=== PATIENT | female | born 1980 | race Caucasian/White ===

== ENCOUNTER 2018-06-12 17:38 | Emergency (ER) | payer MEDICARE, OTHER ==
[~2018-06-12] VITALS: Ht 162.6 cm; Wt 81.6 kg
[2018-06-12 18:00] VITALS: BP 116/64
--- NOTE | 2018-06-12 18:39 | PHYS DOC ---
Adult General Chief Complaint Chief Complaint: FEMALE UROGENTIAL PROBLEMS HPI HPI Patient is a 38 year old female who presents to the ER with complaints of a retained tampon for the last 2 days. Pt denies any irregular vaginal discharge, dysuria, abdominal pain, or urinary frequency. She denies any pain at this time. Review of Systems Review of Systems Constitutional: Denies fever or chills [] : Denies dysuria or hematuria; reports retained tampon in vagina x 2 days [] Musculoskeletal: Denies back pain Neurologic: Denies headache, focal weakness or sensory changes [] All other systems were reviewed and found to be within normal limits, except as documented in this note. Allergies Allergies Allergies Coded Allergies Type Severity Reaction Last Updated Verified No Known Drug Allergies 06/12/18 No Physical Exam Physical Exam Constitutional: Well developed, well nourished, no acute distress, non-toxic appearance. [] HENT: Normocephalic, atraumatic, bilateral external ears normal, oropharynx moist, no oral exudates, nose normal. [] Eyes: PERRLA, conjunctiva normal, no discharge. [] Pelvic Exam: Telephone Coin Box Collector present Stephanie RN Abdomen: Nontender External Genitalia: Normal Skin Speculum: Normal vaginal mucosa, large amount of thick white vaginal discharge, normal cervical discharge, no visible foreign body Bimanual: No adnexal masses or tenderness, No CMT, no palpable foreign body Skin: Warm, dry, no erythema, no rash. [] Neurologic: Alert and oriented X 3, normal motor function, normal sensory function, no focal deficits noted. [] Psychologic: Affect normal, judgement normal, mood normal. [] Current Patient Data Lab Values Laboratory Tests Test 06/12/18 19:39 06/12/18 19:49 Urine Collection Type Unknown Urine Color Yellow Urine Clarity Cloudy Urine pH 5.5 Urine Specific [place] 1.025 Urine Protein Negative mg/dL (NEG-TRACE) Urine Glucose (UA) Negative mg/dL (NEG) Urine Ketones (Stick) Negative mg/dL (NEG) Urine Blood Moderate (NEG) Urine Nitrite Negative (NEG) Urine Bilirubin Negative (NEG) Urine Urobilinogen Dipstick 0.2 mg/dL (0.2 mg/dL) Urine Leukocyte Esterase Negative (NEG) Urine RBC Occ /HPF (0-2) Urine WBC 1-4 /HPF (0-4) Urine Squamous Epithelial Cells Many /LPF Urine Bacteria Many /HPF (0-FEW) POC Urine HCG, Qualitative Hcg negative (Negative) Microbiology 06/12/18 Wet Prep - Final, Complete EKG EKG [] Radiology/Procedures Radiology/Procedures [] Course & Med Decision Making Course & Med Decision Making Pertinent Labs and Imaging studies reviewed. (See chart for details) [] Dragon Disclaimer Dragon Disclaimer This electronic medical record was generated, in whole or in part, using a voice recognition dictation system. Departure Departure Impression: Primary Impression: UTI (urinary tract infection) Additional Impression: BV (bacterial vaginosis) Disposition: HOME, SELF-CARE Condition: STABLE Patient Instructions: Bacterial Vaginosis, [id number], Urinary Tract Infection, Bcoh-jf-Dhee Additional Instructions: Fill the prescriptions and use them as directed. Follow up with your primary care doctor next week. Return to the ER if symptoms worsen. Scripts Cephalexin (CEPHALEXIN) 500 Mg Capsule 1 CAP PO QID for 7 Days, #28 CAP 0 Refills Prov: JAMES RICKS APRN 06/12/18 Metronidazole (FLAGYL) 500 Mg Tablet 1 TAB PO BID for 7 Days, #14 TAB 0 Refills Prov: JAMES RICKS APRN 06/12/18 Problem Qualifiers Primary Impression: UTI (urinary tract infection) Urinary tract infection type: site unspecified Hematuria presence: with hematuria Qualified Codes: N39.0 - Urinary tract infection, site not specified ; R31.9 - Hematuria, unspecified JAMES RICKS APRN Jun 12, 2018 18:39
[2018-06-12 19:54] LABS: BILIRUBIN,URINE NEGATIVE (NEG); CLARITY,URINE CLOUDY; COLOR,URINE YELLOW; NITRITE,URINE NEGATIVE (NEG); PH,URINE 5.5; PROTEIN,URINE NEGATIVE (NEG-TRACE); UROBILINOGEN,URINE 0.2 mg/dL (0.2 mg/dL)
[2018-06-12 19:58] LABS: BACTERIA,URINE MANY /HPF (0-FEW); RBC,URINE OCC /HPF (0-2); SQUAMOUS EPITHELIAL CELL,UR MANY /LPF
--- NOTE | 2018-06-12 21:05 | RAD ---
Pelvic ultrasound Clinical Indication:PELVIC DISCOMFORT, POSS RETAINED TAMPON. . TRANSABDOMINAL SCAN Limited visualization of uterus and ovaries. TRANSVAGINAL SCAN Uterus: * Size (in centimeters): 6.9 longitudinal by 4.4 AP by 5 transverse. * Appearance: No evidence of mass * Endometrium: 4 mm endometrial stripe thickness. Uniform appearance. Right ovary: * Size: 3.1 cm long axis. * Blood flow: Intact * Appearance: Small follicles, 1 cm or less Left ovary: * Size: 3.3 cm long axis. * Blood flow: Intact * Appearance: Small follicles. Free fluid: None visualized IMPRESSION: Unremarkable pelvic ultrasound. No sonographic evidence of retained tampon. Electronically signed by: Al Garcia MD (06/12/2018 9:01 PM) [facility]
[2018-06-12] MEDS ORDERED: METR500T PO (21:36)
[2018-06-12] MEDS ORDERED: CEPH500C PO (21:36)
--- NOTE | 2018-06-13 07:56 | RAD ---
Examination: Single frontal view the pelvis HISTORY: History of retained tampon. COMPARISON: None available FINDINGS: Multiple calcifications identified in the pelvis likely pelvic phleboliths. Surgical clips identified in the pelvis. No evidence of radiopaque foreign body identified. Moderate degenerative changes left hip joint. Left hip hardware identified transfixing the left intertrochanteric fracture with surrounding heterotopic ossification. IMPRESSION: No evidence of radiopaque foreign body identified. Electronically signed by: Gagandeep Mendoza MD (06/13/2018 7:53 AM) [facility]
[2018-06-14 15:26] LABS: GC PROBE Negative (Negative)
== END 2018-06-12 21:51 | disposition home or self-care (01) ==
LOC: ER 17:38
DX: N76.0 Acute vaginitis (principal); B96.89 Other specified bacterial agents as the cause of diseases classified elsewhere; N39.0 Urinary tract infection, site not specified
CPT/HCPCS: 72170; 76830; 76856; 81001; 81025; 87491; 87591; 99285; Q0111; 87086

== ENCOUNTER 2018-06-23 11:28 | Emergency (ER) | payer MEDICARE, OTHER ==
[~2018-06-23] VITALS: Ht 154.9 cm; Wt 81.6 kg
[~2018-06-23 11:28] MED LIST: CEPH500C PO; METR500T PO
[2018-06-23 11:42] VITALS: BP 113/75
--- NOTE | 2018-06-23 12:34 | RAD ---
AP and Lateral Views of the Chest 06/23/2018 12:10 PM Indication: COUGH, SOA, SORE THROAT X 2 DAYS Comparison: None Findings: There is possible mild infiltrate in the medial right upper lobe. No pneumothorax or pleural effusion is seen. Heart size is within normal limits. Bony thorax is grossly intact. IMPRESSION: Possible mild infiltrate in the medial right upper lobe. Electronically signed by: Wilber Anne MD (06/23/2018 12:31 PM) [facility]
[2018-06-23] MEDS ORDERED: BENZ100C PO (12:41)
[2018-06-23] MEDS ORDERED: PROAIR HFA8.5 GM INH (12:41)
[2018-06-23] MEDS ORDERED: AZIT250T6 PO (12:41)
--- NOTE | 2018-06-23 12:41 | PHYS DOC ---
Past Medical History Past Medical History: Other Additional Past Medical Histor: Severe Traumatic Brain Injury Past Surgical History: Hip Replacement, Other Additional Past Surgical Histo: Brain Surgery Alcohol Use: None Drug Use: None Adult General Chief Complaint Chief Complaint: Congestion HPI HPI Patient is a 38 year old F who presents with productive cough and shortness of breath with audible wheezing for the last 2-3 days. Patient denies fever or chills. She denies nausea or vomiting. She is not a smoker Review of Systems Review of Systems Constitutional: Denies fever or chills [] HENT: Denies drainage or congestion. Respiratory: Reports cough with sputum production, reports wheezing and shortness of breath, worse with lying flat Cardiovascular: No additional information not addressed in HPI [] Integument: Denies rash or skin lesions [] All other systems were reviewed and found to be within normal limits, except as documented in this note. Current Medications Current Medications Current Medications Medications (Trade) Dose Ordered Sig/Inocente Start Time Stop Time Status Last Admin Dose Admin Albuterol/ Ipratropium (Duoneb) 3 ml 1X ONCE 06/23/18 12:45 06/23/18 12:46 DC 06/23/18 13:09 3 ML Allergies Allergies Allergies Coded Allergies Type Severity Reaction Last Updated Verified No Known Drug Allergies 06/12/18 No Physical Exam Physical Exam Constitutional: Well developed, well nourished, no acute distress, non-toxic appearance. [] HENT: Normocephalic, atraumatic, bilateral TMs pearly kim with retraction, no sinus tenderness present, posterior oropharynx without erythema or lesion Eyes: PERRLA, EOMI, conjunctiva normal, no discharge. [] Neck: Normal range of motion, no tenderness, supple, no stridor. [] Cardiovascular:Heart rate regular rhythm, no murmur [] Lungs & Thorax: Bilateral breath sounds diffuse wheezing and coarse lung sounds throughout Skin: Warm, dry, no erythema, no rash. [] Neurologic: Alert and oriented X 3, normal motor function, normal sensory function, no focal deficits noted. [] Psychologic: Affect normal, judgement normal, mood normal. [] Current Patient Data Vital Signs Vital Signs Date Time Temp Pulse Resp B/P (MAP) Pulse Ox O2 Delivery O2 Flow Rate FiO2 06/23/18 13:11 96 Room Air 06/23/18 11:42 97.3 93 18 113/75 (88) 97.3 EKG EKG [] Radiology/Procedures Radiology/Procedures PATIENT: JONG WALLIS ACCOUNT: [id number] : 1980 LOCATION: ER AGE: 38 SEX: F EXAM STATUS: REG ER ORD. PHYSICIAN: JOHNIE WATKINS APRN REASON: COUGH, SOB PROCEDURE: CHEST PA & LATERAL AP and Lateral Views of the Chest 06/23/2018 12:10 PM Indication: COUGH, SOA, SORE THROAT X 2 DAYS Comparison: None Findings: There is possible mild infiltrate in the medial right upper lobe. No pneumothorax or pleural effusion is seen. Heart size is within normal limits. Bony thorax is grossly intact. IMPRESSION: Possible mild infiltrate in the medial right upper lobe. Electronically signed by: Wilber Crump MD (06/23/2018 12:31 PM) [facility] DICTATED and SIGNED BY: WILBER CRUMP MD DATE: 06/23/18 1229 [] Course & Med Decision Making Course & Med Decision Making Pertinent Labs and Imaging studies reviewed. (See chart for details) Plan: Azithromycin Rx, albuterol MDI Rx, Tessalon Perles Rx, Phenergan with codeine Rx, follow-up with PCP, return precautions reviewed Dragon Disclaimer Dragon Disclaimer This electronic medical record was generated, in whole or in part, using a voice recognition dictation system. Departure Departure Impression: Primary Impression: Pneumonia Disposition: 01 HOME, SELF-CARE Condition: IMPROVED Referrals: NON,STAFF (PCP) Patient Instructions: Pneumonia, Adult Scripts Albuterol Sulfate (PROAIR HFA INHALER) 8.5 Gm Hfa.aer.ad 1 PUFF INH PRN Q6HRS PRN for SHORTNESS OF BREATH, #1 INHALER 0 Refills Prov: JOHNIE WATKINS APRN 06/23/18 Benzonatate (TESSALON PERLE) 100 Mg Capsule 1 CAP PO TID, #21 CAP Prov: JOHNIE WATKINS APRN 06/23/18 Azithromycin (AZITHROMYCIN TABLET) 250 Mg Tablet 1 PKG PO UD, #6 TAB Prov: JOHNIE WATKINS APRN 06/23/18 Problem Qualifiers Primary Impression: Pneumonia Pneumonia type: due to unspecified organism Laterality: right Lung location : middle lobe of lung Qualified Codes: J18.1 - Lobar pneumonia, unspecified organism JOHNIE WATKINS [employer]ICER Jun 23, 2018 12:41
[2018-06-23] MEDS ORDERED: IPRATRPIUM/ALBUTEROL 0.5/2.5MG 3 ML NEBU. NEB ONE (12:45)
== END 2018-06-23 13:39 | disposition home or self-care (01) ==
LOC: ER 11:28
DX: J18.1 Lobar pneumonia, unspecified organism (principal)
CPT/HCPCS: 71046; 94640; 99284; J7620

== ENCOUNTER 2018-10-05 10:21 | Emergency (ER) | payer MEDICARE, OTHER ==
[~2018-10-05] VITALS: Ht 162.6 cm; Wt 86.2 kg
[~2018-10-05 10:21] MED LIST changes: +ALBU2.5V8 INH; +AZIT250T6 PO; +BENZ100C PO
[2018-10-05] MEDS ORDERED: ONDANSETRON PF 4 MG/2 ML VIAL. IV ONE (10:45)
[2018-10-05] MEDS ORDERED: IV NORMAL SALINE 1000ML BAG 1,000 ML IV ONE (10:45)
[2018-10-05] MEDS ORDERED: FAMOTIDINE 20 MG/2 ML VIAL IVP ONE (10:45)
--- NOTE | 2018-10-05 10:47 | PHYS DOC ---
Past Medical History Past Medical History: Other Additional Past Medical Histor: Severe Traumatic Brain Injury Past Surgical History: Hip Replacement, Other Additional Past Surgical Histo: Brain Surgery Alcohol Use: None Drug Use: None Adult General Chief Complaint Chief Complaint: CHEST PAIN-NON CARDIAC NATURE HPI HPI Patient is a 38 year old female who presents with mid chest pain that radiates to her throat and she states is a sharp pain and rates 9 out of 10. The patient states this been going on for the last 2 days. Patient states she's had some nausea and vomiting but denies fever. Patient states she's been taking omeprazole. Review of Systems Review of Systems Constitutional: Denies fever or chills [] Eyes: Denies change in visual acuity, redness, or eye pain [] HENT: Denies nasal congestion or sore throat [] Respiratory: Denies cough or shortness of breath [] Cardiovascular: The chest pain radiates up her throat and is sharp GI: Denies abdominal pain, + nausea, + vomiting, denies bloody stools or diarrhea [] : Denies dysuria or hematuria [] Musculoskeletal: Denies back pain or joint pain [] Integument: Denies rash or skin lesions [] Neurologic: Denies headache, focal weakness or sensory changes [] All other systems were reviewed and found to be within normal limits, except as documented in this note. Current Medications Current Medications Current Medications Medications (Trade) Dose Ordered Sig/Inocente Start Time Stop Time Status Last Admin Dose Admin Famotidine (Pepcid Vial) 20 mg 1X ONCE 10/05/18 10:45 10/05/18 10:46 DC 10/05/18 10:57 20 MG Fentanyl Citrate (Fentanyl 2ml Vial) 50 mcg 1X ONCE 10/05/18 12:45 10/05/18 12:46 DC 10/05/18 12:45 50 MCG Multi-Ingredient Mouthwash/Gargle (Gi Cocktail) 20 ml 1X ONCE 10/05/18 13:00 10/05/18 13:01 DC 10/05/18 12:59 20 ML Ondansetron HCl (Zofran) 4 mg 1X ONCE 10/05/18 10:45 10/05/18 10:46 DC 10/05/18 10:56 4 MG Sodium Chloride 1,000 ml @ 1,000 mls/hr 1X ONCE 10/05/18 10:45 10/05/18 11:44 DC 10/05/18 10:56 1,000 MLS/HR Allergies Allergies Allergies Coded Allergies Type Severity Reaction Last Updated Verified No Known Drug Allergies 06/12/18 No Physical Exam Physical Exam Constitutional: Well developed, well nourished, no acute distress, non-toxic appearance. [] HENT: Normocephalic, atraumatic, bilateral external ears normal, oropharynx moist, no oral exudates, nose normal. [] Eyes: PERRLA, EOMI, conjunctiva normal, no discharge. [] Neck: Normal range of motion, no tenderness, supple, no stridor. [] Cardiovascular:Heart rate regular rhythm, no murmur [] Lungs & Thorax: Bilateral breath sounds clear to auscultation [] Abdomen: Bowel sounds normal, soft, no tenderness, no masses, no pulsatile masses. [] Skin: Warm, dry, no erythema, no rash. [] Back: No tenderness, no CVA tenderness. [] Extremities: No tenderness, no cyanosis, no clubbing, ROM intact, no edema. [] Neurologic: Alert and oriented X 3, normal motor function, normal sensory function, no focal deficits noted. [] Psychologic: Affect normal, judgement normal, mood normal. [] Current Patient Data Vital Signs Vital Signs Date Time Temp Pulse Resp B/P (MAP) Pulse Ox O2 Delivery O2 Flow Rate FiO2 10/05/18 13:00 92 121/58 (79) 96 Room Air 10/05/18 10:21 97.4 16 97.4 Lab Values Laboratory Tests Test 10/05/18 11:05 10/05/18 11:30 White Blood Count 9.5 x10^3/uL (4.0-11.0) Red Blood Count 4.05 x10^6/uL (3.50-5.40) Hemoglobin 12.3 g/dL (12.0-15.5) Hematocrit 36.6 % (36.0-47.0) Mean Corpuscular Volume 90 fL (79-100) Mean Corpuscular Hemoglobin 30 pg (25-35) Mean Corpuscular Hemoglobin Concent 34 g/dL (31-37) Red Cell Distribution Width 14.5 % (11.5-14.5) Platelet Count 274 x10^3/uL (140-400) Neutrophils (%) (Auto) 76 % (31-73) H Lymphocytes (%) (Auto) 17 % (24-48) L Monocytes (%) (Auto) 5 % (0-9) Eosinophils (%) (Auto) 2 % (0-3) Basophils (%) (Auto) 1 % (0-3) Neutrophils # (Auto) 7.3 x10^3uL (1.8-7.7) Lymphocytes # (Auto) 1.6 x10^3/uL (1.0-4.8) Monocytes # (Auto) 0.5 x10^3/uL (0.0-1.1) Eosinophils # (Auto) 0.1 x10^3/uL (0.0-0.7) Basophils # (Auto) 0.0 x10^3/uL (0.0-0.2) Sodium Level 141 mmol/L (136-145) Potassium Level 3.5 mmol/L (3.5-5.1) Chloride Level 104 mmol/L (98-107) Carbon Dioxide Level 25 mmol/L (21-32) Anion Gap 12 (6-14) Blood Urea Nitrogen 13 mg/dL (7-20) Creatinine 1.1 mg/dL (0.6-1.0) H Estimated GFR (Cockcroft-Gault) 55.3 BUN/Creatinine Ratio 12 (6-20) Glucose Level 164 mg/dL (70-99) H Calcium Level 8.8 mg/dL (8.5-10.1) Total Bilirubin 0.3 mg/dL (0.2-1.0) Aspartate Amino Transferase (AST) 13 U/L (15-37) L Alanine Aminotransferase (ALT) 21 U/L (14-59) Alkaline Phosphatase 96 U/L (46-116) Troponin I Quantitative < 0.017 ng/mL (0.000-0.055) Total Protein 6.7 g/dL (6.4-8.2) Albumin 3.4 g/dL (3.4-5.0) Albumin/Globulin Ratio 1.0 (1.0-1.7) Urine Collection Type Void Urine Color Yellow Urine Clarity Cloudy Urine pH 5.5 Urine Specific [place] 1.020 Urine Protein Negative mg/dL (NEG-TRACE) Urine Glucose (UA) Negative mg/dL (NEG) Urine Ketones (Stick) Negative mg/dL (NEG) Urine Blood Negative (NEG) Urine Nitrite Negative (NEG) Urine Bilirubin Negative (NEG) Urine Urobilinogen Dipstick 0.2 mg/dL (0.2 mg/dL) Urine Leukocyte Esterase Trace (NEG) Urine RBC Rare /HPF (0-2) Urine WBC 1-4 /HPF (0-4) Urine Squamous Epithelial Cells Mod /LPF Urine Bacteria Few /HPF (0-FEW) Urine Mucus Slight /LPF Urine Test Negative (NEG) Laboratory Tests 10/05/18 11:05 Laboratory Tests 10/05/18 11:05 EKG EKG []Sinus rhythm and no STEMI Interpretation Time: [address] Castillo Radiology/Procedures Radiology/Procedures Chest xray Impressions: [facility] [address] [place], [place] [id number] IMAGING REPORT Signed PATIENT: JONG WALLIS ACCOUNT: [id number] : 1980 LOCATION: ER AGE: 38 SEX: F EXAM STATUS: REG ER ORD. PHYSICIAN: BANDAR SANCHEZ APRN REASON: chest pain,PREG TEST PROCEDURE: CHEST PA & LATERAL PROCEDURE: CHEST PA LATERAL CLINICAL INDICATION: CHEST PAIN COMPARISON: 06/23/2018 FINDINGS: No pneumothorax identified. Cardiac and mediastinal contours unremarkable. No pulmonary consolidation or acute airspace disease. No acute osseous abnormalities identified. IMPRESSION: No pulmonary consolidation or acute airspace disease. Electronically signed by: Juan Dia DO (10/05/2018 12:41 PM) [id number] DICTATED and SIGNED BY: JUAN DIA DO DATE: 10/05/18 1241 Course & Med Decision Making Course & Med Decision Making Patient is a 38 year old female who presents with mid chest pain that radiates to her throat and she states is a sharp pain and rates 9 out of 10. The patient states this been going on for the last 2 days. Patient states she's had some nausea and vomiting but denies fever. Patient states she's been taking omeprazole. Alert and oriented. Patient does have history for TBI. Patient has no abdominal tenderness. Abdomen is soft no masses felt. Lungs are clear to auscultation all lobes. PERRLA. Chest pain not re-produced with palpation. Afebrile. Skin pink and dry. Mucus membranes are moist. Denies dysuria, diarrhea , shortness of breath. Patient has no peripheral edema. Vital signs are within normal limits. Blood work is unremarkable. Chest x-ray shows no acute findings. Patient continues to complain about epigastric pain that radiates up into her throat. Patient is given a GI cocktail and fentanyl. The patient me discharged with nonspecific chest pain and nonspecific epigastric pain likely GERD related. Dragon Disclaimer Dragon Disclaimer This electronic medical record was generated, in whole or in part, using a voice recognition dictation system. Departure Departure Impression: Primary Impression: Epigastric abdominal pain Additional Impression: Nonspecific abdominal pain Disposition: HOME, SELF-CARE Condition: STABLE Referrals: NON,STAFF (PCP) Patient Instructions: Chest Pain (Nonspecific), Gastroesophageal Reflux Disease , Adult Additional Instructions: Continue taking Pepcid one in the morning and 1 in evening. Follow-up through primary care in the next couple of days. Return for worsening of symptoms, shortness of air, fever. Attending Signature Attending Signature I have reviewed the PA/FULLER BRUSH WORKER's note and plan of care. I was available for consultation as needed during the patient's visit in the emergency department. I agree with the clinical impression, plan, and disposition. Problem Qualifiers BANDAR SANCHEZ APRN Oct 05, 2018 10:47 RADHA CASTILLO DO Oct 06, 2018 09:18
--- NOTE | 2018-10-05 10:54 | EKG ---
[facility] [address] [place] [address] Test Date: 2018-10-05 Test Time: 10:31:32 Pat Name: JONG WALLIS Department: Room: Gender: F Strategic Sourcing Manager: : 1980 Requested By: BANDAR SANCHEZ Order Number: [id number] Reading MD: Measurements Intervals [place] Rate: 74 P: 139 MS: 138 QRS: 166 QRSD: 78 T: 165 QT: 394 QTc: 443 Interpretive Statements SINUS RHYTHM ABNORMAL RIGHT AXIS DEVIATION QRS(T) CONTOUR ABNORMALITY CONSISTENT WITH HIGH LATERAL INFARCT AGE UNDETERMINED T ABNORMALITY IN INFERIOR LEADS ABNORMAL ECG RI6.01 No previous ECG available for comparison
[2018-10-05 11:18] LABS: BASO % 1 % (0-3); EOS # 0.1 x10^3/uL (0.0-0.7); EOS % 2 % (0-3); HEMATOCRIT 36.6 % (36.0-47.0); HEMOGLOBIN 12.3 g/dL (12.0-15.5); LYMPH # 1.6 x10^3/uL (1.0-4.8); LYMPH % 17 % (24-48); MEAN CORPUSCULAR HEMOGLOBIN 30 pg (25-35); MEAN CORPUSCULAR HGB CONC 34 g/dL (31-37); MEAN CORPUSCULAR VOLUME 90 fL (79-100); MONO # 0.5 x10^3/uL (0.0-1.1); MONO % 5 % (0-9); NEUT # 7.3 x10^3uL (1.8-7.7); NEUT % 76 % (31-73); PLATELET COUNT 274 x10^3/uL (140-400); RED BLOOD COUNT 4.05 x10^6/uL (3.50-5.40); RED CELL DISTRIBUTION WIDTH 14.5 % (11.5-14.5); WHITE BLOOD COUNT 9.5 x10^3/uL (4.0-11.0)
[2018-10-05 11:32] LABS: CALCIUM 8.8 mg/dL (8.5-10.1); CREATININE 1.1 mg/dL (0.6-1.0); GFR 55.3; POTASSIUM 3.5 mmol/L (3.5-5.1)
[2018-10-05 11:39] LABS: ALBUMIN 3.4 g/dL (3.4-5.0); TOTAL BILIRUBIN 0.3 mg/dL (0.2-1.0); TOTAL PROTEIN 6.7 g/dL (6.4-8.2)
[2018-10-05 11:46] LABS: BILIRUBIN,URINE NEGATIVE (NEG); CLARITY,URINE CLOUDY; COLOR,URINE YELLOW; NITRITE,URINE NEGATIVE (NEG); PH,URINE 5.5; PROTEIN,URINE NEGATIVE (NEG-TRACE); UROBILINOGEN,URINE 0.2 mg/dL (0.2 mg/dL)
[2018-10-05 11:48] LABS: BACTERIA,URINE FEW /HPF (0-FEW); RBC,URINE RARE /HPF (0-2); SQUAMOUS EPITHELIAL CELL,UR MOD /LPF
[2018-10-05 11:55] LABS: U PREG PATIENT NEGATIVE (NEG)
[2018-10-05] MEDS ORDERED: fentaNYL PF VIAL 100 MCG/2 ML VIAL IV ONE (12:45)
--- NOTE | 2018-10-05 12:46 | RAD ---
PROCEDURE: CHEST PA LATERAL CLINICAL INDICATION: CHEST PAIN COMPARISON: 06/23/2018 FINDINGS: No pneumothorax identified. Cardiac and mediastinal contours unremarkable. No pulmonary consolidation or acute airspace disease. No acute osseous abnormalities identified. IMPRESSION: No pulmonary consolidation or acute airspace disease. Electronically signed by: Juan Dia DO (10/05/2018 12:41 PM) [id number]
[2018-10-05 13:00] VITALS: BP 121/58
[2018-10-05] MEDS ORDERED: LIDO:MAALOX 1:1 20 ML SINGLE DOSE. SWSW ONE (13:00)
== END 2018-10-05 13:47 | disposition home or self-care (01) ==
LOC: ER 10:21
DX: R10.13 Epigastric pain (principal); R11.2 Nausea with vomiting, unspecified; R07.0 Pain in throat; Z87.820 Personal history of traumatic brain injury; Z96.649 Presence of unspecified artificial hip joint
CPT/HCPCS: 36415; 71046; 80053; 81001; 81025; 84484; 85025; 87086; 93005; 96361; 96374; 96375; 99284; J2405; J3010; J3490; J7030

== ENCOUNTER 2018-10-17 15:05 | Emergency (ER) | payer MEDICARE, OTHER ==
[~2018-10-17] VITALS: Ht 162.6 cm; Wt 72.6 kg
--- NOTE | 2018-10-17 15:43 | PHYS DOC ---
Past Medical History Past Medical History: GERD, Other Additional Past Medical Histor: Severe Traumatic Brain Injury (DANIELLE CONTEHRICHARD Muller APRN) Past Surgical History: Hip Replacement, Other Additional Past Surgical Histo: Brain Surgery (GIANCARLO CONTEHTIFFANIE Muller APRN) Alcohol Use: None Drug Use: None (ZHENGRIKYGIANCARLOJUWANTIFFANIE Muller APRN) Adult General Chief Complaint Chief Complaint: MECHANICAL FALL HPI HPI Patient is a 38 year old female who presents with pain and swelling to her left orbit and right wrist. The patient was at home when her walker broke causing her to fall to the floor from standing height. The patient is using a walker due to a recent hip surgery. She did not have anything to break her fall and landed directly onto a hardwood floor. They presented directly to the emergency department. (JUWAN CONTEH APRN) Review of Systems Review of Systems Constitutional: Denies fever or chills [] Eyes: Denies change in visual acuity, redness, or eye pain [] HENT: Denies nasal congestion or sore throat [] Respiratory: Denies cough or shortness of breath [] Cardiovascular: No additional information not addressed in HPI [] GI: Denies abdominal pain, nausea, vomiting, bloody stools or diarrhea [] : Denies dysuria or hematuria [] Musculoskeletal: See history of present illness Integument: Denies rash or skin lesions [] Neurologic: Denies headache, focal weakness or sensory changes [] Endocrine: Denies polyuria or polydipsia [] All other systems were reviewed and found to be within normal limits, except as documented in this note. (JUWAN CONTEH APRN) Current Medications Current Medications Current Medications Medications (Trade) Dose Ordered Sig/Inocente Start Time Stop Time Status Last Admin Dose Admin Acetaminophen/ Hydrocodone Bitart (Lortab 5/325) 1 tab 1X ONCE 10/17/18 15:45 10/17/18 15:46 DC 10/17/18 16:17 1 TAB (RADHA CASTILLO DO) Allergies Allergies Allergies Coded Allergies Type Severity Reaction Last Updated Verified No Known Drug Allergies 06/12/18 No (RADHA CASTILLO DO) Physical Exam Physical Exam Constitutional: Well developed, well nourished, no acute distress, non-toxic appearance. [] HENT: Normocephalic, hematoma noted to right orbit with moderate edema, bilateral external ears normal, oropharynx moist, no oral exudates, nose normal. [] Eyes: PERRLA, EOMI, conjunctiva normal, no discharge. [] Neck: Normal range of motion, no tenderness, supple, no stridor. [] Cardiovascular:Heart rate regular rhythm, no murmur [] Lungs & Thorax: Bilateral breath sounds clear to auscultation [] Abdomen: Bowel sounds normal, soft, no tenderness, no masses, no pulsatile masses. [] Skin: Warm, dry, no erythema, no rash. [] Back: No tenderness, no CVA tenderness. [] Extremities: tenderness to right wrist with mild edema noted, no cyanosis, no clubbing, ROM decreased due to pain Neurologic: Alert and oriented X 3, normal motor function, normal sensory function, no focal deficits noted. [] Psychologic: Affect normal, judgement normal, mood normal. [] (JUWAN CONTEH APRN) Current Patient Data Vital Signs Vital Signs Date Time Temp Pulse Resp B/P (MAP) Pulse Ox O2 Delivery O2 Flow Rate FiO2 10/17/18 16:17 16 99 Room Air 10/17/18 15:33 97.7 75 112/65 (81) 97.7 (RADHA CASTILLO DO) Lab Values Laboratory Tests Test 10/17/18 15:46 POC Urine HCG, Qualitative Hcg negative (Negative) (RADHA CASTILLO DO) Lab Values Laboratory Tests Test 10/17/18 15:46 POC Urine HCG, Qualitative Hcg negative (Negative) (JUWAN CONTEH APRN) EKG EKG [] (JUWAN CONTEH APRN) Radiology/Procedures Radiology/Procedures [] PATIENT: JONG WALLIS ACCOUNT: [id number] : 1980 LOCATION: ER AGE: 38 SEX: F EXAM STATUS: REG ER ORD. PHYSICIAN: JUWAN CONTEH APRN REASON: fell after walker broke from standing height onto face and wrist PROCEDURE: WRIST 3V RIGHT Right wrist radiograph every 12/01/2018 INDICATION: Fall from standing position. COMPARISON: None available TECHNIQUE: 3 views of the right wrist are provided. FINDINGS: Volar plate and screw fixation of the distal radius is noted. There is no lucency surrounding the hardware. Scaphoid appears intact. There is a remote ulnar styloid process fracture which appears well corticated. Scapholunate interval is intact. There is no perilunate dislocation. IMPRESSION: ORIF changes of the distal radius are noted. No acute fracture is identified. Electronically signed by: Sheron Urbano MD (10/17/2018 3:57 PM) [facility] DICTATED and SIGNED BY: SHERON URBANO MD DATE: 10/17/18 1556 Signed PATIENT: JONG WALLIS ACCOUNT: [id number] : 1980 LOCATION: ER AGE: 38 SEX: F EXAM STATUS: REG ER ORD. PHYSICIAN: JUWAN CONTEH APRN REASON: fell on left orbit after wheel broke on walker PROCEDURE: CT HEAD AND MAXILLOFACIAL WO CT Head W/O Contrast: History: fell on left orbit after wheel broke on walker Comparison: none Axial images were obtained without contrast. There is a large prior left sided craniotomy and there is a large area of encephalomalacia in the left cerebral hemisphere. There is dural changes over the left cerebral hemisphere as well which is felt to be chronic. There is encephalomalacia of the temporal lobes bilaterally and there is mild diffuse atrophy. There is no mass effect, extraaxial fluid collections or hydrocephalus. There is no gross bleed. There is no focal loss of kim-white matter distinction to suggest acute ischemia, i.e. stroke. Impression: 1. Chronic changes including prior left craniotomy and large area of encephalomalacia throughout the left cerebral hemisphere. 2. No acute findings. PQRS Compliance Statement: One or more of the following individualized dose reduction techniques were utilized for this examination: 1. Automated exposure control 2. Adjustment of the mA and/or kV according to patient size 3. Use of iterative reconstruction technique Electronically signed by: Tyesha Ca III, MD (10/17/2018 4:20 PM) [facility] DICTATED and SIGNED BY: TYESHA CA III, MD DATE: 10/17/18 1614 (JUWAN CONTEH APRN) Course & Med Decision Making Course & Med Decision Making Pertinent Labs and Imaging studies reviewed. (See chart for details) []There were no acute results to CT or wrist. (JUWAN CONTEH APRN) Dragon Disclaimer Dragon Disclaimer This electronic medical record was generated, in whole or in part, using a voice recognition dictation system. (JUWAN CONTEH APRN) Departure Departure Impression: Primary Impression: Hematoma Disposition: HOME, SELF-CARE Condition: STABLE Referrals: NON,STAFF (PCP) Patient Instructions: Hematoma Additional Instructions: You may take ibuprofen or Tylenol for pain. Follow-up with your primary care provider for recheck in 3 days or return to the emergency department if worsening. Attending Signature Attending Signature I have reviewed the PA/SOLAR PV INSTALLER's note and plan of care. I was available for consultation as needed during the patient's visit in the emergency department. I agree with the clinical impression, plan, and disposition. (RADHA CASTILLO DO) JUWAN CNOTEH APRN Oct 17, 2018 15:43 RADHA CASTILLO DO Oct 19, 2018 05:02
[2018-10-17] MEDS ORDERED: HYDROcodone/APAP 5/325MG 1 TAB TABLET PO ONE (15:45)
--- NOTE | 2018-10-17 16:02 | RAD ---
Right wrist radiograph every 12/01/2018 INDICATION: Fall from standing position. COMPARISON: None available TECHNIQUE: 3 views of the right wrist are provided. FINDINGS: Volar plate and screw fixation of the distal radius is noted. There is no lucency surrounding the hardware. Scaphoid appears intact. There is a remote ulnar styloid process fracture which appears well corticated. Scapholunate interval is intact. There is no perilunate dislocation. IMPRESSION: ORIF changes of the distal radius are noted. No acute fracture is identified. Electronically signed by: Sindhu Dunn MD (10/17/2018 3:57 PM) [facility]
--- NOTE | 2018-10-17 16:24 | RAD ---
CT Head W/O Contrast: History: fell on left orbit after wheel broke on walker Comparison: none Axial images were obtained without contrast. There is a large prior left sided craniotomy and there is a large area of encephalomalacia in the left cerebral hemisphere. There is dural changes over the left cerebral hemisphere as well which is felt to be chronic. There is encephalomalacia of the temporal lobes bilaterally and there is mild diffuse atrophy. There is no mass effect, extraaxial fluid collections or hydrocephalus. There is no gross bleed. There is no focal loss of kim-white matter distinction to suggest acute ischemia, i.e. stroke. Impression: 1. Chronic changes including prior left craniotomy and large area of encephalomalacia throughout the left cerebral hemisphere. 2. No acute findings. PQRS Compliance Statement: One or more of the following individualized dose reduction techniques were utilized for this examination: 1. Automated exposure control 2. Adjustment of the mA and/or kV according to patient size 3. Use of iterative reconstruction technique Electronically signed by: Mayito Cintron III, MD (10/17/2018 4:20 PM) [facility]
== END 2018-10-17 16:40 | disposition home or self-care (01) ==
LOC: ER 15:05
DX: S05.12XA Contusion of eyeball and orbital tissues, left eye, initial encounter (principal); R60.0 Localized edema; M25.531 Pain in right wrist; K21.9 Gastro-esophageal reflux disease without esophagitis; Z96.649 Presence of unspecified artificial hip joint; W05.0XXA Fall from non-moving wheelchair, initial encounter; Y93.89 Activity, other specified; Y92.009 Unspecified place in unspecified non-institutional (private) residence as the place of occurrence of the external cause; Y99.8 Other external cause status
CPT/HCPCS: 70450; 70486; 73110; 81025; 99284

== ENCOUNTER 2018-12-30 10:25 | Emergency (ER) | payer MEDICARE, OTHER ==
[~2018-12-30] VITALS: Ht 165.1 cm; Wt 81.6 kg
[2018-12-30 11:03] VITALS: BP 119/62
--- NOTE | 2018-12-30 12:01 | RAD ---
3 view study of the right wrist Clinical indications: Right wrist pain after a fall. History of surgery 2013. COMPARISON: October 17, 2018. FINDINGS: Again seen is old healed fracture of the distal right radius. Again seen is surgical fixation hardware which is unchanged in position. No acute-appearing fracture is evident. No lytic process is evident. Alignment is unchanged. Old nonunited ulnar styloid process process fracture or ossification center is seen. IMPRESSION: Stable radiographic study of the right wrist. No acute fracture. Electronically signed by: Kd Shabazz MD (12/30/2018 11:58 AM) [facility]
--- NOTE | 2018-12-30 12:21 | PHYS DOC ---
Past Medical History Past Medical History: GERD, Other Additional Past Medical Histor: Severe Traumatic Brain Injury Past Surgical History: Hip Replacement, Other Additional Past Surgical Histo: Brain Surgery , right wrist fx with plate and screw Alcohol Use: None Drug Use: None Adult General Chief Complaint Chief Complaint: WRIST PAIN HPI HPI Patient is a 38 year old female with history of traumatic brain injury presenting today to the ED with the mother complaining of 6 out of 10 throbbing right wrist pain intermittently since yesterday after she fell down. Patient ambulates with a walker. Mother stated patient tripped and fell. Mother denies patient hitting her head on the ground. Mother denies patient having any loss of consciousness. Review of Systems Review of Systems Constitutional: Denies fever or chills [] Musculoskeletal: Reports right wrist pain Integument: Denies rash or skin lesions [] Neurologic: Denies headache, focal weakness or sensory changes [] All other systems were reviewed and found to be within normal limits, except as documented in this note. Allergies Allergies Allergies Coded Allergies Type Severity Reaction Last Updated Verified No Known Drug Allergies 06/12/18 No Physical Exam Physical Exam Constitutional: Well developed, well nourished, no acute distress, non-toxic appearance. [] Skin: Warm, dry, no erythema, no rash. [] Back: No tenderness, no CVA tenderness. [] Extremities: Right wrist with no obvious deformity, there is an old healed surgical incision noted on the ventral aspect of the wrist. No redness to the area. No scaphoid tenderness. Full range of motion to the right wrist and fingers. Adequate radial, medial, ulnar sensation to the right hand. +2 right radial pulse. Cap refill less than 2 seconds the right fingers. Neurologic: Alert and oriented X 3, normal motor function, normal sensory function, no focal deficits noted. [] Psychologic: Affect normal, judgement normal, mood normal. [] Current Patient Data Vital Signs Vital Signs Date Time Temp Pulse Resp B/P (MAP) Pulse Ox O2 Delivery O2 Flow Rate FiO2 12/30/18 11:03 98.3 73 15 119/62 (81) 96 Room Air 98.3 EKG EKG [] Radiology/Procedures Radiology/Procedures []PROCEDURE: WRIST 3V RIGHT 3 view study of the right wrist Clinical indications: Right wrist pain after a fall. History of surgery 2012. COMPARISON: October 17, 2018. FINDINGS: Again seen is old healed fracture of the distal right radius. Again seen is surgical fixation hardware which is unchanged in position. No acute-appearing fracture is evident. No lytic process is evident. Alignment is unchanged. Old nonunited ulnar styloid process process fracture or ossification center is seen. IMPRESSION: Stable radiographic study of the right wrist. No acute fracture. Electronically signed by: Ramiro Shabazz MD (12/30/2018 11:58 AM) [facility] DICTATED and SIGNED BY: RAMIRO SHABAZZ MD DATE: 12/30/18 1158 Course & Med Decision Making Course & Med Decision Making Pertinent Labs and Imaging studies reviewed. (See chart for details) This is a 38-year-old female patient presenting to the ED today with right wrist pain status post falling yesterday. Right wrist x-rays interpreted by radiologist are negative for any acute findings. Filippo bandage applied to the right wrist. Ice elevation encouraged. Tylenol or Motrin for pain. Follow-up with orthopedic doctor in 1-2 weeks as needed. Dragon Disclaimer Dragon Disclaimer This electronic medical record was generated, in whole or in part, using a voice recognition dictation system. Departure Departure Impression: Primary Impression: Fall from standing Additional Impression: Right wrist sprain Disposition: 01 HOME, SELF-CARE Condition: STABLE Referrals: UNKNOWN PCP NAME (PCP) NORMAN RIVERS II, MD follow up in 1-2 weeks as needed Patient Instructions: Wrist Sprain with [facility] Additional Instructions: You were evaluated in the emergency room for right wrist pain, your right wrist x-rays are negative for any acute findings. Try to ice and elevate the extremity. You can take Tylenol/Motrin for pain. Follow-up with the provided orthopedic doctor or your own orthopedic doctor in 1-2 weeks. Problem Qualifiers Primary Impression: Fall from standing Encounter type: initial encounter Qualified Codes: W19.XXXA - Unspecified fall, initial encounter Additional Impression: Right wrist sprain Encounter type: initial encounter Qualified Codes: S63.501A - Unspecified sprain of right wrist, initial encounter MARKO GUTIÉRREZ APRN Dec 30, 2018 12:21
== END 2018-12-30 12:34 | disposition home or self-care (01) ==
LOC: ER 10:25
DX: S63.501A Unspecified sprain of right wrist, initial encounter (principal); K21.9 Gastro-esophageal reflux disease without esophagitis; Z87.820 Personal history of traumatic brain injury; Z98.890 Other specified postprocedural states; W01.0XXA Fall on same level from slipping, tripping and stumbling without subsequent striking against object, initial encounter; Y93.89 Activity, other specified; Y92.89 Other specified places as the place of occurrence of the external cause; Y99.8 Other external cause status
CPT/HCPCS: 73110; 99284

== ENCOUNTER 2019-04-17 21:03 | Emergency (ER) | payer MEDICARE, OTHER ==
[~2019-04-17] VITALS: Ht 165.1 cm; Wt 81.6 kg
[2019-04-17 21:30] VITALS: BP 131/61
--- NOTE | 2019-04-17 23:04 | RAD ---
Exam performed: CT scan of the head and cervical spine without contrast. Date of Service: 04/17/2019 Comparison: CT head and maxillofacial from 10/17/2018 Clinical History: Trauma, patient fell today, neck pain, bruising under the chin, history of traumatic brain injury Technique: Helical acquisitions are obtained from the foramen magnum to the vertex without intravenous administration of contrast. In addition helical acquisitions are obtained through the cervical spine and maxillofacial structures. Sagittal and coronal reformatted images are obtained and reviewed. CT scan head findings: Postoperative changes of left temporoparietal craniotomy with underlying encephalomalacia. There is an area of encephalomalacia in the right temporal lobe. Prominence of cortical sulci and ventricular system is noted consistent with atrophy. There is no extra axial fluid collection, intraparenchymal hemorrhage or mass lesion. Normal kim-white differentiation is maintained. There is no extra axial fluid collection, intraparenchymal hemorrhage or mass lesion. The visualized orbits, paranasal sinuses and the mastoid air cells are clear. The calvarium is intact. Impression: 1. No acute intracranial process detected. 2. Postoperative changes of left temporal parietal craniotomy with underlying chondromalacia. Mild atrophy is seen. End Impression. CT cervical spine findings: Normal sagittal alignment is preserved. The vertebral body heights and intravertebral disc spaces are maintained. There is no kasia or retrolisthesis. No prevertebral soft tissue swelling is identified. There are no fractures. No definite lymphadenopathy or masses are seen within the neck. The visualized thyroid and salivary glands appears preserved. Impression: 1. No acute abnormality seen in the CT scan cervical spine. End impression Findings: There is normal aeration of both frontal, ethmoid, maxillary and sphenoid sinuses. No air-fluid level, mucoperiosteal thickening or mucus retention cyst is identified. The bony orbital margins and the intraocular contents are bilaterally symmetric and unremarkable. Both ostiomeatal complexes are preserved. Nasal bones and zygomatic arches are preserved.No abnormal fluid collections or hematoma formation seen. The visualized portion of the brain is normal. Impression: 1. No acute abnormality seen. PQRS Compliance Statement: One or more of the following individualized dose reduction techniques were utilized for this examination: 1. Automated exposure control 2. Adjustment of the mA and/or kV according to patient size 3. Use of iterative reconstruction technique Electronically signed by: Kelsey Membreno MD (04/17/2019 11:01 PM) [facility]
[2019-04-17] MEDS ORDERED: IBUPROFEN 200 MG TABLET. PO ONE (23:30)
--- NOTE | 2019-04-18 02:06 | PHYS DOC ---
Past Medical History Past Medical History: Bipolar, GERD, Other Additional Past Medical Histor: Severe Traumatic Brain Injury Past Surgical History: Hip Replacement, Other Additional Past Surgical Histo: Brain Surgery , right wrist fx with plate and screw Alcohol Use: None Drug Use: None Adult General Chief Complaint Chief Complaint: MECHANICAL FALL HPI HPI Patient is a 38 year old female brought in by [facility] is a mechanical fall at her home sounds like a fall from standing she walks with a walker since that she probably tripped over something hit her chin and has neck pain and headache she has a history of a craniotomy for a previous brain injury she also has left knee pain. All other ROS neg unless otherwise noted in HPI Review of Systems Review of Systems SEE ABOVE Current Medications Current Medications Current Medications Medications (Trade) Dose Ordered Sig/Inocente Start Time Stop Time Status Last Admin Dose Admin Ibuprofen (Motrin) 600 mg 1X ONCE 04/17/19 23:30 04/17/19 23:30 DC 04/17/19 23:23 600 MG Allergies Allergies Allergies Coded Allergies Type Severity Reaction Last Updated Verified No Known Drug Allergies 06/12/18 No Physical Exam Physical Exam see above Constitutional: Well developed, well nourished, no acute distress, non-toxic appearance. [] HENT: Normocephalic, atraumatic, bilateral external ears normal, oropharynx moist. ANTERIOR CHIN THERE IS CONTUSION NOTED UNDERNEATH CHIN TRACHEA MIDLINE NO CREPITUS NO RESPIRATORY DISTRESS. Eyes: PERRLA, EOMI, conjunctiva normal, no discharge. [] Neck: DIFFUSE MIDLINE AND PARASPINOUS TTP NOTED. Cardiovascular:Heart rate regular rhythm, no murmur [] Lungs & Thorax: Bilateral breath sounds clear to auscultation [] Abdomen: Bowel sounds normal, soft, no tenderness, no masses, no pulsatile masses. [] Skin: Warm, dry, no erythema, no rash. [] Back: No tenderness, no CVA tenderness. [] Extremities: MILD TTP NOTED LEFT KNEE FAINT CONTUSION NO SIG DEFORMITY DISTAL SENSATION INTACT PULSE INTACT Neurologic: Alert and oriented X 3, normal motor function, normal sensory function, no focal deficits noted. [] Psychologic: Affect normal, judgement normal, mood normal. [] Current Patient Data Vital Signs Vital Signs Date Time Temp Pulse Resp B/P (MAP) Pulse Ox O2 Delivery O2 Flow Rate FiO2 04/17/19 21:30 81 15 98 04/17/19 21:05 98.9 131/61 (84) Room Air 98.9 Lab Values Laboratory Tests Test 04/17/19 21:55 POC Urine HCG, Qualitative Hcg negative (Negative) EKG EKG [] Radiology/Procedures Radiology/Procedures [] Impressions: Clinical History: Trauma, patient fell today, neck pain, bruising under the chin, history of traumatic brain injury Technique: Helical acquisitions are obtained from the foramen magnum to the vertex without intravenous administration of contrast. In addition helical acquisitions are obtained through the cervical spine and maxillofacial structures. Sagittal and coronal reformatted images are obtained and reviewed. CT scan head findings: Postoperative changes of left temporoparietal craniotomy with underlying encephalomalacia. There is an area of encephalomalacia in the right temporal lobe. Prominence of cortical sulci and ventricular system is noted consistent with atrophy. There is no extra axial fluid collection, intraparenchymal hemorrhage or mass lesion. Normal kim-white differentiation is maintained. There is no extra axial fluid collection, intraparenchymal hemorrhage or mass lesion. The visualized orbits, paranasal sinuses and the mastoid air cells are clear. The calvarium is intact. Impression: 1. No acute intracranial process detected. 2. Postoperative changes of left temporal parietal craniotomy with underlying chondromalacia. Mild atrophy is seen. End Impression. CT cervical spine findings: Normal sagittal alignment is preserved. The vertebral body heights and intravertebral disc spaces are maintained. There is no kasia or retrolisthesis. No prevertebral soft tissue swelling is identified. There are no fractures. No definite lymphadenopathy or masses are seen within the neck. The visualized thyroid and salivary glands appears preserved. Impression: 1. No acute abnormality seen in the CT scan cervical spine. End impression Findings: There is normal aeration of both frontal, ethmoid, maxillary and sphenoid sinuses. No air-fluid level, mucoperiosteal thickening or mucus retention cyst is identified. The bony orbital margins and the intraocular contents are bilaterally symmetric and unremarkable. Both ostiomeatal complexes are preserved. Nasal bones and zygomatic arches are preserved.No abnormal fluid collections or hematoma formation seen. The visualized portion of the brain is normal. Impression: 1. No acute abnormality seen. PQRS Compliance Statement: One or more of the following individualized dose reduction techniques were utilized for this examination: 1. Automated exposure control 2. Adjustment of the mA and/or kV according to patient size 3. Use of iterative reconstruction technique Electronically signed by: Kelsey Membreno MD (04/17/2019 11:01 PM) [facility] DICTATED and SIGNED BY: KELSEY MEMBRENO MD DATE: 04/17/19 348 Course & Med Decision Making Course & Med Decision Making Pertinent Labs and Imaging studies reviewed. (See chart for details) []FALL FROM STANDING IMAGING NEGATIVE. PT AND MOM REASSURED. Dragon Disclaimer Dragon Disclaimer This electronic medical record was generated, in whole or in part, using a voice recognition dictation system. Departure Departure Impression: Primary Impression: Fall from standing Disposition: 01 HOME, SELF-CARE Condition: STABLE Referrals: UNKNOWN PCP NAME (PCP) Patient Instructions: Head Injury, Adult, [id number] MAGDA CHEN MD Apr 18, 2019 02:06
--- NOTE | 2019-04-18 07:46 | RAD ---
Examination: KNEE LEFT 3V History: Trauma, pain Comparison/Correlation: None Findings: Total 3 images of the left knee were obtained. Crosstable lateral technique utilized. Intramedullary yonatan is present with associated transversely oriented screw at the distal femoral diametaphyseal region. This yonatan is not fully included for purposes of this exam. Joint spaces are adequate. No joint effusion. No fracture or bony destruction. Soft tissue calcification is questioned involving the proximal medial collateral ligament region. Impression: No acute process. Electronically signed by: Vinayak Holcomb MD (04/18/2019 7:44 AM) [facility]
== END 2019-04-17 23:16 | disposition home or self-care (01) ==
LOC: ER 21:03
DX: S80.02XA Contusion of left knee, initial encounter (principal); S00.83XA Contusion of other part of head, initial encounter; M54.2 Cervicalgia; F31.9 Bipolar disorder, unspecified; K21.9 Gastro-esophageal reflux disease without esophagitis; Z96.649 Presence of unspecified artificial hip joint; W18.39XA Other fall on same level, initial encounter; Y93.89 Activity, other specified; Y92.89 Other specified places as the place of occurrence of the external cause; Y99.8 Other external cause status
CPT/HCPCS: 70450; 70486; 72125; 73562; 81025; 99284

== ENCOUNTER 2019-08-18 14:06 | Emergency (ER) | payer MEDICARE, OTHER ==
[~2019-08-18] VITALS: Ht 157.5 cm; Wt 72.6 kg
[2019-08-18 14:40] VITALS: BP 108/69
--- NOTE | 2019-08-18 15:53 | RAD ---
EXAM: Right knee, 4 views. HISTORY: Pain. COMPARISON: None. FINDINGS: 4 views of the right knee are obtained. There is no fracture, dislocation or subluxation. There is medial and patellofemoral compartment predominant spurring. There is no joint effusion. IMPRESSION: No acute osseous finding. Mild right knee osteoarthritis. Electronically signed by: Kimmy Sneed MD (08/18/2019 3:50 PM) [facility]
--- NOTE | 2019-08-18 15:59 | PHYS DOC ---
Past Medical History Past Medical History: Bipolar, GERD, Other Additional Past Medical Histor: Severe Traumatic Brain Injury Past Surgical History: Hip Replacement, Other Additional Past Surgical Histo: Brain Surgery , right wrist fx with plate and screw Alcohol Use: None Drug Use: None Adult General Chief Complaint Chief Complaint: KNEE INJURY HPI HPI Patient is a 39 year old female who presents with was at the [facility] and tripped over a black male and fell on her right knee. Patient usually uses a walker to ambulate. Patient is here complaining of right knee pain that is a 5 out of 10. States it aches. Review of Systems Review of Systems Musculoskeletal: Denies back pain. Right knee joint pain [] All other systems were reviewed and found to be within normal limits, except as documented in this note. Allergies Allergies Allergies Coded Allergies Type Severity Reaction Last Updated Verified No Known Drug Allergies 06/12/18 No Physical Exam Physical Exam Constitutional: Well developed, well nourished, no acute distress, non-toxic appearance. [] HENT: Normocephalic, atraumatic, bilateral external ears normal, oropharynx moist, no oral exudates, nose normal. [] Eyes: PERRLA, EOMI, conjunctiva normal, no discharge. [] Neck: Normal range of motion, no tenderness, supple, no stridor. [] Cardiovascular:Heart rate regular rhythm, no murmur [] Lungs & Thorax: Bilateral breath sounds clear to auscultation [] Abdomen: Bowel sounds normal, soft, no tenderness, no masses, no pulsatile mass es. [] Skin: Warm, dry, no erythema, no rash. [] Back: No tenderness, no CVA tenderness. [] Extremities: No tenderness, no cyanosis, no clubbing, ROM intact, Right knee 3+ edema. [] Neurologic: Alert and oriented X 3, normal motor function, normal sensory function, no focal deficits noted. [] Psychologic: Affect normal, judgement normal, mood normal. [] Current Patient Data Vital Signs Vital Signs Date Time Temp Pulse Resp B/P (MAP) Pulse Ox O2 Delivery O2 Flow Rate FiO2 08/18/19 14:40 97.7 68 18 108/69 (82) 97 Room Air 97.7 EKG EKG [] Radiology/Procedures Radiology/Procedures [] Impressions: [facility] [address] [place] [address] IMAGING REPORT Signed PATIENT: JONG WALLIS ACCOUNT: [id number] : 1980 LOCATION: ER AGE: 39 SEX: F EXAM STATUS: REG ER ORD. PHYSICIAN: BANDAR SANCHEZ APRN REASON: pain, fall,swelling pt tripped over rug at store. PROCEDURE: KNEE RIGHT 4V EXAM: Right knee, 4 views. HISTORY: Pain. COMPARISON: None. FINDINGS: 4 views of the right knee are obtained. There is no fracture, dislocation or subluxation. There is medial and patellofemoral compartment predominant spurring. There is no joint effusion. IMPRESSION: No acute osseous finding. Mild right knee osteoarthritis. Electronically signed by: Kimmy Sneed MD (08/18/2019 3:50 PM) [facility] DICTATED and SIGNED BY: KIMMY SNEED MD DATE: 08/18/191549 Course & Med Decision Making Course & Med Decision Making Popliteal pulse is present. No Tenderness to palpation. Skin pink warm and dry. 3+ swelling to the Anterior knee itself. No laxity in the joint, no deformity, bruising, abrasion, laceration, redness. Denies any numbness or tingling. Can extend the knee and bend the knee without complete patient. Patient took no pain medication prior to coming to the emergency room. [] Dragon Disclaimer Dragon Disclaimer This electronic medical record was generated, in whole or in part, using a voice recognition dictation system. Departure Departure Impression: Primary Impression: Knee pain, right Disposition: 01 HOME, SELF-CARE Condition: STABLE Referrals: UNKNOWN PCP NAME (PCP) Patient Instructions: Contusion, [id number], Knee Pain Additional Instructions: Follow-up with primary care provider if needed. Use ice and ibuprofen to help with pain. Problem Qualifiers Primary Impression: Knee pain, right Chronicity: acute Qualified Codes: M25.561 - Pain in right knee BANDAR SANCHEZ APRN Aug 18, 2019 15:58
== END 2019-08-18 16:14 | disposition home or self-care (01) ==
LOC: ER 14:06
DX: M25.561 Pain in right knee (principal); F31.9 Bipolar disorder, unspecified; K21.9 Gastro-esophageal reflux disease without esophagitis; Z96.649 Presence of unspecified artificial hip joint; G89.11 Acute pain due to trauma; W01.0XXA Fall on same level from slipping, tripping and stumbling without subsequent striking against object, initial encounter; Y93.89 Activity, other specified; Y92.89 Other specified places as the place of occurrence of the external cause; Y99.8 Other external cause status
CPT/HCPCS: 73564; 99284